=== PATIENT | male | born 1945 | race Caucasian/White ===

== ENCOUNTER → 2017-01-13 | Outpatient (CLI) | payer MEDICARE | END | disposition home or self-care (01) | LOC: GMAH 10:06 | PROVIDERS: ATTEND Family Medicine | DX: Z12.5 Encounter for screening for malignant neoplasm of prostate (principal); E78.2 Mixed hyperlipidemia; M10.9 Gout, unspecified; E11.9 Type 2 diabetes mellitus without complications | CPT/HCPCS: 84443; 84550; G0103 ==

== ENCOUNTER → 2018-01-26 | Outpatient (CLI) | payer OTHER | LOC: GMAH 10:28 | PROVIDERS: ATTEND Family Medicine | DX: I10 Essential (primary) hypertension (principal); E78.2 Mixed hyperlipidemia; Z12.5 Encounter for screening for malignant neoplasm of prostate | CPT/HCPCS: 84443; 84550; G0103 ==

== ENCOUNTER → 2018-02-08 | Outpatient (CLI) | payer OTHER ==
--- NOTE | 2018-02-09 14:10 | US ---
EXAM DESCRIPTION: Renal CLINICAL HISTORY: 72 years Male, CHRONIC KIDNEY DISEASE STAGE 4 COMPARISON: None. TECHNIQUE: Retroperitoneal sonogram was performed to evaluate the kidneys and bladder. FINDINGS: Right kidney Right renal length is 11.7 cm. Markedly increased renal cortical echogenicity is consistent with chronic renal failure. There is mild diffuse cortical thinning. Sonolucent pyramids are prominent. Cyst at the lower pole of the right kidney measures 1.8 cm. Cyst in the medial upper pole of the right kidney measures 2.2 cm. Other smaller cysts are present. Positive color flow in the right kidney. No solid-appearing right renal mass or shadowing stone. No hydronephrosis. Left kidney Left renal length is 11.4 cm . Increased cortical echogenicity of the left kidney is noted consistent with chronic renal parenchymal disease. Small cysts are present, one parapelvic measuring 1.8 cm and another measuring 2 cm. Cortical cyst measures 1.3 cm. Positive color flow within the left kidney. No solid appearing left renal mass or shadowing stone. No hydronephrosis. Urinary bladder No images of the urinary bladder are submitted. Normal caliber of the aorta and inferior vena cava. Arteriosclerotic aortic plaque is present. IMPRESSION: Hyperechoic kidneys with multiple cysts consistent with chronic renal parenchymal disease. Electronically signed by: Andrew Brandon MD 02/09/2018 2:07 PM CDT
== END ==
LOC: US 14:25
PROVIDERS: ATTEND Internal Medicine Nephrology
DX: N18.4 Chronic kidney disease, stage 4 (severe) (principal)

== ENCOUNTER → 2018-02-14 | Outpatient (CLI) | payer OTHER | END | disposition home or self-care (01) | LOC: LAB.O 11:22 | PROVIDERS: ATTEND Internal Medicine Nephrology | DX: N18.4 Chronic kidney disease, stage 4 (severe) (principal) ==

== ENCOUNTER → 2019-02-08 | Outpatient (CLI) | payer OTHER | LOC: GMAH 11:02 | PROVIDERS: ATTEND Family Medicine | DX: I10 Essential (primary) hypertension (principal); Z12.5 Encounter for screening for malignant neoplasm of prostate | CPT/HCPCS: 84443; 84550; G0103 ==

== ENCOUNTER → 2020-06-23 | Outpatient (CLI) | payer OTHER | LOC: GMA MATASK 11:21 | PROVIDERS: ATTEND Family Medicine | DX: Z12.5 Encounter for screening for malignant neoplasm of prostate (principal); I10 Essential (primary) hypertension ==